=== PATIENT | male | born 1935 | race Caucasian/White ===

== ENCOUNTER 2016-09-15 09:27 | Emergency (ER) | payer MEDICARE, OTHER ==
[2016-09-15 10:01] LABS: BASOPHIL# 0.2 X 10^3uL (0.0-0.1); BASOPHILS 1.1 % (0.0-2.0); EOSINOPHILS 0.1 % (0.0-6.0); HEMATOCRIT 42.6 % (42.0-54.0); HEMOGLOBIN 14.7 g/dL (14.0-18.0); LYMPHOCYTES 8.7 % (20.0-40.0); LYMPHOCYTES# 1.2 X 10^3uL (0.8-3.8); MEAN CELL VOLUME 89.7 fL (80.0-100.0); MEAN CORPUS. HGB CONCENTRATION 34.6 g/dL (32.0-36.0); MEAN CORPUSCULAR HEMOGLOBIN 31.1 pg (29.0-35.0); MEAN PLATELET VOLUME 7.9 fL (7.4-10.4); MONOCYTES# 0.7 X 10^3uL (0.2-1.0); NEUTROPHILS 85.1 % (54.0-75.0); NEUTROPHILS# 11.9 X 10^3uL (2.6-6.7); PLATELET COUNT 228 X 10^3uL (130-440); RED BLOOD COUNT 4.75 X 10^6uL (4.20-6.10); RED CELL DISTRIBUTION WIDTH 12.6 % (11.5-14.5); WHITE BLOOD COUNT 14.1 X 10^3uL (3.9-10.7)
[2016-09-15 10:11] LABS: BLOOD UREA NITROGEN 24 mg/dL (9-20); CHLORIDE 107 mmol/L (98-107); EST GLOMERULAR FILTRATION RATE > 60 mL/min; GLUCOSE 94 mg/dL (70-100); MAGNESIUM 2.5 mg/dL (1.6-2.3); POTASSIUM 4.3 mmol/L (3.5-5.1); SODIUM 144 mmol/L (137-145)
--- NOTE | 2016-09-15 10:16 | CT REPORT ---
HISTORY: Syncope. Amnesia COMPARISON: None. TECHNIQUE: Unenhanced axial CT of the head. Dose reduction technique was utilized. FINDINGS: The ventricles, sulci, and cisterns are normal in size, shape, and position There is no evidence of intracranial hemorrhage, mass lesion, or acute infarct There is no midline shift The bony calvaria appears intact The orbits appear unremarkable. Evidence of prior cataract surgery. The visualized paranasal sinuses and mastoid air cells appear clear Atherosclerotic calcifications of the vertebral arteries and cavernous carotid arteries. IMPRESSION: No acute intracranial abnormality. Final Electronic Signature: This report was electronically signed by Gen Monica MD on 09/15/2016 10: 13 AM. brandy /
--- NOTE | 2016-09-15 10:17 | RADIOLOGY REPORT ---
History: Syncope Comparison: None. Technique: CXR 1V FINDING: Elevation of the right hemidiaphragm. No pneumothorax or effusion. Atherosclerotic calcifications of the aortic arch. Heart size is normal. Mild central vascular congestion without jennifer pulmonary edema . IMPRESSION: Elevation of the right hemidiaphragm. Mild central vascular congestion without jennifer pulmonary edema Final Electronic Signature: This report was electronically signed by Gen Monica MD on 09/15/2016 10: 15 AM. brandy /
[2016-09-15 10:24] LABS: TROPONIN I < 0.012 ng/mL (0.00-0.034)
--- NOTE | 2016-09-15 12:04 | ER NURSING DOCUMENTATION ---
Nurse's Notes [facility] Name:Alfredo Elias Age:81 yrs Sex:Male :1935 Arrival Date:09/15/2016 Time:09:27 Bed4 Private MD:Rajeev Su Diagnosis:Syncope;Dehydration Presentation: 09/15 09:30 Presenting complaint: Patient states: pt states he got out of bed this AM and was a st little nauseated and had some back with he contributed to work hard yesterday. pt was going about his day then he woke up an hour latter on the bedroom floor pt has no idea how he got there and he is feeling fine now except for the back pain. Transition of care: Home. Care prior to arrival: Medication(s) given: Tylenol. 09:30 Method Of Arrival: Private Vehicle st 09:42 Notified ED Physician of Dr. Kilpatrick notified. st 09:42 Acuity: DEVIN 2 st Triage Assessment: 09:30 General: Appears in no apparent distress, Behavior is cooperative. Pain: Complains of st pain in left low back and right low back Pain currently is 6 out of 10 on a pain scale. Aggravated by worst with movment. Neuro: Level of Consciousness is awake, alert, Oriented to person, place, time, Risk Professional are equal bilaterally Moves all extremities. Reports loosing an hour of his day and waking up on the floor.. Cardiovascular:. Cardiovascular: Capillary refill < 3 seconds Heart tones present Pulses are palpable in right radial artery and left radial artery Rhythm is sinus bradycardia. Respiratory: No deficits noted. GI: Abdomen is flat, non- distended Abd is soft and non tender X 4 quads. Reports nausea, that has resolved. Historical: - Allergies: wallnuts; - Home Meds: 1. None - PMHx: global amnisa episode; - PSHx: cateracts; - Tetanus: < 10 years. - Ebola Screening: : Patient denies exposure to infectious person. Patient denies travel to an Ebola-affected area in the 21 days before illness onset. . - Social history: Smoking status: Patient states was never smoker of tobacco. Patient uses alcohol occasionally. Patient/guardian denies using marijuana. Screenin:58 Infectious Disease Risk None. Abuse screen: Denies threats or abuse. Denies injuries st from another. pt feels safe at home. Nutritional screening: No deficits noted. Assessment: 10:54 General: pt continues to feel fine.. st Vital Signs: 09:30 BP 162 / 68; Pulse 58; Resp 16; Pulse Ox 89% on R/A; Pain 6/10; st 09:58 Pulse Ox 93% on 2 lpm NC; st 10:11 BP 153 / 67 (auto/); st 10:14 Pulse 56 MON; Resp 23; Pulse Ox 95% ; st 10:26 BP 148 / 66 (auto/); st 10:29 Pulse 58 MON; Resp 11; Pulse Ox 95% ; st 10:30 BP 145 / 67 (auto/); st 10:39 Pulse 60 MON; Resp 20; Pulse Ox 95% ; st ED Course: 09:30 Patient arrived in ED. ama 09:31 Rajeev Su DO is Private Physician. ama 09:35 Inserted peripheral IV: 20 gauge in right antecubital area and blood collected. Oxygen st Oxygen administration via nasal cannula @ 2L/min. 09:39 EKG done per protocol. Performed by ED Staff. Shown to ED physician. st 09:42 Vonnie Almendarez, RN is Primary Nurse. st 09:[address] 09:50 Patient moved to [place]. pm1 09:59 Valuables Remains with patient Patient has correct armband on for positive st identification. Placed in gown. Bed in low position. 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 Pulse ox on. NIBP on. 10:01 Norberto Kilpatrick MD is Attending Physician. sc 10:11 Patient moved back from [place]. pm1 10:54 Urine collected. Clean catch specimen. st 11:18 Rajeev Su DO is Referral Physician. sc Administered Medications: 10:55 Drug: NS 0.9% 500 ml; Route: IV; Rate: bolus; Site: right antecubital; st 11:11 Follow up: IV Status: Completed infusion; IV Intake: 700ml st 11:11 Drug: NS 0.9% 500 ml; Route: IV; Rate: bolus; Site: right antecubital; st 11:22 Follow up: IV Status: Completed infusion; IV Intake: 300ml st 11:22 Drug: NS 0.9% 1000 ml; Route: IV; Rate: bolus; Site: right antecubital; st 11:57 Follow up: IV Status: Completed infusion; IV Intake: 1000ml st Point of Care Testing: Blood Glucose: 09:49 Blood Glucose: 92 mg/dL; st Urine Dip: 10:49 pH: 5.0; ; Specific [place]: 1.030; Ketones: Large; Glucose: Negative; Protein: st Positive (+); Leukocytes: Negative; Nitrite: Negative ; Blood: Hemolyzed Trace; Bilirubin: Small (+) ; Urobilinogen: Normal 11:56 pH: 5.0; ; Specific [place]: 1.020; Ketones: Moderate; Glucose: Negative; Protein: st Negative; Leukocytes: Negative; Nitrite: Negative ; Blood: Negative; Bilirubin: Negative ; Urobilinogen: Normal Ranges: Intake: 11:11 IV: 700ml; Total: 700ml. st 11:22 IV: 300ml; Total: 1000ml. st 11:57 IV: 1000ml; Total: 2000ml. Outcome: 11:19 Discharge ordered by . ks 12:03 Discharged to home ambulatory. 12:03 Condition: improved 12:03 Discharge instructions given to patient, Instructed on discharge instructions, follow up and referral plans. 12:04 Patient [address] the ED. st 09/16 09:05 Discharge F/U Call: Spoke with: patient. other: Name: pt states that he is still st stiff and sore but is otherwise doing well. Pt denies any dizzy spells and states he is trying to get more water in. Signatures: Vonnie Almendarez RN RN st Chew, Scott, MD MD sc McBride, Philisha pm1 Arsenio Gracia, Reg Reg ama
--- NOTE | 2016-09-15 12:04 | ER PHYSICIAN DOCUMENTATION ---
Physician Documentation [facility] Name:Alfredo Elias Age:81 yrs Sex:Male :1935 Arrival Date:09/15/2016 Time:09:27 Bed4 Private MD:Rajeev Su ED, Scott Disposition: 09/15/16 11:19 Discharged to Home/Self Care. Impression: Syncope, Dehydration. - Condition is Good. - Discharge Instructions: DEHYDRATION (8y-Adult), SYNCOPE, Unk Cause. - Medical Reconciliation form form. - Follow up: Rajeev Su DO; When: Tomorrow; Reason: Recheck today's complaints. - Problem is new. - Symptoms are resolved. HPI: 09/15 10:50 This 81 yrs old Male presents to ER via Private Vehicle with complaints of sc Passed Out Prior To Arrival, Flank Pain. 10:50 The patient has experienced syncope, collapsed. Onset: The symptom(s)/episode sc began/occurred at 05:30. Duration: This was a single episode, that lasted 1 hour(s). Context: the episode(s) was witnessed, by no one, occurred at home, occurred while the patient was standing. Associated injury: The patient did not suffer any apparent associated injury. Associated signs and symptoms: Pertinent positives: nausea, flank discomfort. Current symptoms: Currently, the patient is not experiencing any symptoms. The patient has not experienced similar symptoms in the past. Historical: - Allergies: wallnuts; - Home Meds: 1. None - PMHx: global amnisa episode; - PSHx: cateracts; - Tetanus: < 10 years. - Ebola Screening: : Patient denies exposure to infectious person. Patient denies travel to an Ebola-affected area in the 21 days before illness onset. . - Social history: Smoking status: Patient states was never smoker of tobacco. Patient uses alcohol occasionally. Patient/guardian denies using marijuana. ROS: 11:15 Constitutional: Negative for fever, chills, and weight loss. sc Eyes: Negative for injury, pain, redness, and discharge. ENT: Negative for injury, pain, and discharge. Neck: Negative for injury, pain, and swelling. Cardiovascular: Negative for chest pain, palpitations, and edema. Respiratory: Negative for shortness of breath, cough, wheezing, and pleuritic chest pain. Back: Negative for injury and pain. MS/Extremity: Negative for injury and deformity. 11:15 Skin: Negative for injury, rash, and discoloration. sc 11:15 Cardiovascular: Negative for chest pain, edema, orthopnea, palpitations. 11:15 Abdomen/GI: Positive for nausea. 11:15 : Positive for flank pain. 11:15 Neuro: Positive for syncope. Exam: Constitutional: This is a well developed, well nourished patient who is awake, alert, and in no acute distress. Head/Face: Normocephalic, atraumatic. Eyes: Pupils equal round and reactive to light, extra-ocular motions intact. Lids and lashes normal. Conjunctiva and sclera are non-icteric and not injected. Cornea within normal limits. Periorbital areas with no swelling, redness, or edema. ENT: Nares patent. No nasal discharge, no septal abnormalities noted. Tympanic membranes are normal and external auditory canals are clear. Oropharynx with no redness, swelling, or masses, exudates, or evidence of obstruction, uvula midline. Mucous membranes moist. Neck: Trachea midline, no thyromegaly or masses palpated, and no cervical lymphadenopathy. Supple, full range of motion without nuchal rigidity, or vertebral point tenderness. No meningismus. Chest/axilla: Normal chest wall appearance and motion. Nontender with no deformity. No lesions are appreciated. Respiratory: Lungs have equal breath sounds bilaterally, clear to auscultation and percussion. No rales, rhonchi or wheezes noted. No increased work of breathing, no retractions or nasal flaring. Abdomen/GI: Soft, non-tender, with normal bowel sounds. No distension or tympany. No guarding or rebound. No evidence of tenderness throughout. Back: No spinal tenderness. No costovertebral tenderness. Full range of motion. Male : Normal genitalia with no discharge or lesions. Skin: Warm, dry with normal turgor. Normal color with no rashes, no lesions, and no evidence of cellulitis. MS/ Extremity: Pulses equal, no cyanosis. Neurovascular intact. Full, normal range of motion, negative Homans's, calves equal bilaterally. 11:16 Neuro: Awake and alert, GCS 15, oriented to person, place, time, and situation. sc Cranial nerves II-XII grossly intact. Motor strength 5/5 in all extremities. Sensory grossly intact. Cerebellar exam normal. Normal gait. 11:16 Cardiovascular: Rate: bradycardic, Rhythm: regular. Vital Signs: 09:30 BP 162 / 68; Pulse 58; Resp 16; Pulse Ox 89% on R/A; Pain 6/10; st 09:58 Pulse Ox 93% on 2 lpm NC; st 10:11 BP 153 / 67 (auto/); st 10:14 Pulse 56 MON; Resp 23; Pulse Ox 95% ; st 10:26 BP 148 / 66 (auto/); st 10:29 Pulse 58 MON; Resp 11; Pulse Ox 95% ; st 10:30 BP 145 / 67 (auto/); st 10:39 Pulse 60 MON; Resp 20; Pulse Ox 95% ; st MDM: 10:01 Patient medically screened. co 11:16 Differential Diagnosis: cardiac arrhythmia, cerebrovascular accident, idiopathic sc syncope, vasovagal episode. Neurological re-evaluation: normal neurological exam including cranial nerves, orientation, mentation, motor and sensory exam, cerebellar testing, GCS normal, and normal gait. Data reviewed: vital signs, nurses notes, old medical records, lab test result(s), EKG, radiologic studies, CT scan, and as a result, I will continue to observe the patient, administer IV fluids. ECG:. Medication response: The patient's symptoms have improved. Response to treatment: the patient's symptoms have resolved after treatment, the patient is now symptom free, flank discomfort and nausea resolved with rehydration. Patient refused admission for observation/repeat enzymes, further eval for syncope.. 09/15 10:18 Order name: CBC AUTO DIF, MDIF/RMOR IF IND; Complete Time: 10:30 EDMS 09/15 10:30 Interpretation: Abnormal: WHITE BLOOD COUNT 14.1; NEUTROPHILS 85.1. co 09/15 10:25 Order name: BASIC METABOLIC PANEL; Complete Time: 10:30 EDMS 09/15 10:30 Interpretation: Normal. co 09/15 10:25 Order name: MAGNESIUM; Complete Time: 10:30 EDMS 09/15 10:30 Interpretation: Normal Except: MAGNESIUM 2.5. co 09/15 10:25 Order name: TROPONIN I; Complete Time: 10:30 EDMS 09/15 10:30 Interpretation: Normal. co 09/15 10:16 Order name: CAT SCAN; HEAD W/O CON [id number]; Complete Time: 10:30 EDMS 09/15 10:29 Interpretation: Normal. co 09/15 10:18 Order name: CHEST; SINGLE VIEW [id number]; Complete Time: 10:30 EDMS 09/15 10:30 Interpretation: Normal Except. co 09/15 09:47 Order name: 12-lead EKG; Complete Time: 09:47 st 09/15 09:47 Order name: Iv Saline Lock; Complete Time: :47 09/15 09:47 Order name: Place Patient On Monitor; Complete Time: :47 09/15 09:47 Order name: Pulse Ox Continuous; Complete Time: :47 st 09/15 10:33 Order name: Urine Dip; Complete Time: 10:55 co EC:16 Rate is 53 beats/min. Rhythm is regular. QRS [place] is Normal. NM interval is normal. QRS sc interval is normal. QT interval is normal. Q waves are Old. T waves are Normal. No ST changes noted. Clinical impression: Normal ECG. Interpreted by me. Reviewed by me. Dispensed Medications: 10:55 Drug: NS 0.9% 500 ml; Route: IV; Rate: bolus; Site: right antecubital; st 11:11 Follow up: IV Status: Completed infusion; IV Intake: 700ml st 11:11 Drug: NS 0.9% 500 ml; Route: IV; Rate: bolus; Site: right antecubital; st 11:22 Follow up: IV Status: Completed infusion; IV Intake: 300ml st 11:22 Drug: NS 0.9% 1000 ml; Route: IV; Rate: bolus; Site: right antecubital; st 11:57 Follow up: IV Status: Completed infusion; IV Intake: 1000ml Point of Care Testing: Blood Glucose: 09:49 Blood Glucose: 92 mg/dL; st Urine Dip: 10:49 pH: 5.0; ; Specific [place]: 1.030; Ketones: Large; Glucose: Negative; Protein: st Positive (+); Leukocytes: Negative; Nitrite: Negative ; Blood: Hemolyzed Trace; Bilirubin: Small (+) ; Urobilinogen: Normal 11:56 pH: 5.0; ; Specific [place]: 1.020; Ketones: Moderate; Glucose: Negative; Protein: st Negative; Leukocytes: Negative; Nitrite: Negative ; Blood: Negative; Bilirubin: Negative ; Urobilinogen: Normal Ranges: Critical Glucose Levels:Adult <50 mg/dl or >400 mg/dl <40 mg/dl or >180 mg/dl Signatures: Vonnie Almendarez RN Norberto Lema MD MD sc
== END 2016-09-15 12:04 | disposition home or self-care (01) ==
LOC: ER 09:27
DX: R55 Syncope and collapse (principal); E86.0 Dehydration; R11.0 Nausea; R10.9 Unspecified abdominal pain; R00.1 Bradycardia, unspecified
CPT/HCPCS: 70450; 71010; 80048; 83735; 84484; 85025; 93005; 93010; 96360; 99285

== ENCOUNTER 2016-09-22 14:18 | Emergency (ER) | payer MEDICARE, OTHER ==
[2016-09-22 14:55] LABS: BASOPHILS 0.3 % (0.0-2.0); EOSINOPHILS 1.6 % (0.0-6.0); EOSINOPHILS# 0.2 X 10^3uL (0.0-0.4); HEMATOCRIT 42.3 % (42.0-54.0); HEMOGLOBIN 14.5 g/dL (14.0-18.0); LYMPHOCYTES 20.2 % (20.0-40.0); LYMPHOCYTES# 1.9 X 10^3uL (0.8-3.8); MEAN CORPUS. HGB CONCENTRATION 34.4 g/dL (32.0-36.0); MEAN CORPUSCULAR HEMOGLOBIN 31.3 pg (29.0-35.0); MEAN PLATELET VOLUME 8.4 fL (7.4-10.4); MONOCYTES 8.4 % (2.0-10.0); MONOCYTES# 0.8 X 10^3uL (0.2-1.0); NEUTROPHILS 69.5 % (54.0-75.0); NEUTROPHILS# 6.6 X 10^3uL (2.6-6.7); PLATELET COUNT 230 X 10^3uL (130-440); RED BLOOD COUNT 4.65 X 10^6uL (4.20-6.10); RED CELL DISTRIBUTION WIDTH 12.7 % (11.5-14.5); WHITE BLOOD COUNT 9.5 X 10^3uL (3.9-10.7)
[2016-09-22 15:03] LABS: CKMB QUALITATIVE NEGATIVE; MYOGLOBIN QUALITATIVE NEGATIVE; TROPONIN QUALITATIVE NEGATIVE
[2016-09-22 15:14] LABS: BLOOD UREA NITROGEN 24 mg/dL (9-20); CALCIUM 9.3 mg/dL (8.4-10.2); CHLORIDE 107 mmol/L (98-107); EST GLOMERULAR FILTRATION RATE 57 mL/min; GLUCOSE 107 mg/dL (70-100); POTASSIUM 4.1 mmol/L (3.5-5.1); SODIUM 144 mmol/L (137-145)
--- NOTE | 2016-09-22 15:24 | CT REPORT ---
History: Syncope 09/15/2016. Comparison: 09/15/2016 Technique: Axial CT from the skull base through the vertex without contrast. This examination was performed usin g automated exposure control, adjustment of mA or kV according to patient size, and/or use of iterati ve reconstruction technique. Findings: There are a few scattered ill-defined foci of decreased attenuation in the supratentorial white matte r of both cerebral hemispheres. There is no evidence of acute large vascular territory infarct, intra or extra-axial mass or hemorrhage, nor hydrocephalus. There is mild generalized prominence of the ve ntricles and sulci. The soft tissues, orbits, and globes are unremarkable. There is no acute osseous finding and the paranasal sinuses are clear. Impression: 1. 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 2. Mild supratentorial chronic microvascular ischemic disease. Final Electronic Signature: This report was electronically signed by Ed Bowman MD on 09/22/2016 3:21 PM. [email or web address] /
[2016-09-22 15:26] LABS: TROPONIN I < 0.012 ng/mL (0.00-0.034)
--- NOTE | 2016-09-22 15:27 | RADIOLOGY REPORT ---
HISTORY: Recent history of syncope, wellness check. COMPARISON: 09/15/2016 FINDINGS: 1 view of the chest obtained. There has been no significant interval change. There is persistent elev ation of the right hemidiaphragm. Lung volumes are slightly decreased. Minimal discoid as opacificati on or atelectasis is noted in the left lung base. Cardiac silhouette at upper limits of normal in siz e. No pneumothorax or displaced rib fracture. IMPRESSION: No evidence of active cardiopulmonary disease or other significant change. Final Electronic Signature: This report was electronically signed by Eder Barfield MD on 09/22/2016 3 :25 PM. [email or web address] /
--- NOTE | 2016-09-22 16:03 | CT REPORT ---
HISTORY: Fainting, elevated d-dimer COMPARISON: None. TECHNIQUE: This examination was performed using automated exposure control, adjustment of mA or kV according to patient size, and/or use of iterative reconstruction technique. Axial CT imaging from the thoracic i nlet through the upper abdomen following administration of IV contrast during peak opacification of t he pulmonary arteries, multiplanar reformatted and 3-D images are evaluated. 100cc Isovue 370 contrast. FINDINGS: There is normal enhancement within the pulmonary arteries. No evidence for pulmonary embolism. Pulmon keo arteries are upper limits of normal in size. The thoracic aorta appears normal except for mild at herosclerotic change. There is mild cardiomegaly. There is no pleural or pericardial effusion. There is no abnormal adenopa thy. There is mild elevation of the right hemidiaphragm, associated with mild atelectasis. There is n o consolidation or evidence for pneumonia. There is normal alignment to the thoracic spine. The upper abdominal structures appear normal. IMPRESSION: No evidence for pulmonary embolism. Mild atelectasis at the bases particularly on the right, in part due to elevation of the right hemidi aphragm. Mild cardiomegaly. Final Electronic Signature: This report was electronically signed by Lino Vivar MD on 09/22/2016 4 :01 PM. [email or web address] /
--- NOTE | 2016-09-22 17:56 | ER PHYSICIAN DOCUMENTATION ---
Physician Documentation [facility] Name:Alfredo Elias Age:81 yrs Sex:Male :1935 Arrival Date:09/22/2016 Time:14:18 Bed4 Private MD: Bert Granados Disposition: 09/22/16 16:26 Discharged to Home/Self Care. Impression: Near Syncope: Postural, Dehydration. - Condition is Good. - Discharge Instructions: DEHYDRATION (8y-Adult), SYNCOPE, Unk Cause. - Medical Reconciliation form form. - Follow up: Rajeev Su DO; When: 4- 6 days; Reason: Recheck today's complaints, Continuance of care. - Problem is an ongoing problem. - Symptoms are resolved. - Notes: Drink 1 - 2 quarts of water or Gatorade every day. Eat three meals per day. Rest.... Follow up with Dr. Rajeev Su in 4 - 6 days for recheck. HPI: 09/22 14:47 This 81 yrs old Male presents to ER via EMS with complaints of Fainting, cd recurrent. 14:47 The patient has experienced syncope, became unresponsive, collapsed. Onset: The cd symptom(s)/episode began/occurred acutely, 7 day(s) ago, and a second time 2 days ago. He reports his is out of town and he eats maybe two meals a day, since he has to prepare the meals himself. He was initially seen in the ED by Dr. Norberto Kilpatrick 7 days ago on September 15 for a syncopal episode. He was given IV fluids and discharged home. He had a second syncopal episode 2 days ago, fell and stuck his right lateral eyebrow and sustained a small laceration. He did not come to the ED or go to the Clinic. Today a friend was concerned and called for a welfare check. He was brought to the ED for evaluation. He is not on anticoagulants or Plavix. Context: the episode(s) was witnessed, by no one, occurred at home, occurred while the patient was standing, Just prior to the episode the patient experienced lightheadedness. Associated signs and symptoms: Pertinent negatives: abdominal pain, ataxia, blurred vision, chest pain, confusion, diaphoresis, diarrhea, dizziness, headache, lightheadedness, nausea, palpitations, seizure, shortness of breath, vomiting, weakness. Current symptoms: Currently, the patient is not experiencing any symptoms. The patient has experienced a previous episode, last week, approximately 7 days ago. Historical: - Allergies: No known drug Allergies; - Home Meds: 1. None - PSHx: cataracts; - Tetanus: < 10 years. - Ebola Screening: : Patient negative for fever greater than or equal to 101.5 degrees Fahrenheit, and additional compatible Ebola Virus Disease symptoms. Patient denies exposure to infectious person. Patient denies travel to an Ebola-affected area in the 21 days before illness onset. No symptoms or risks identified at this time. . - Immunization history: Pneumococcal vaccine is up to date, Flu Vaccine < 1 year. - Social history: Smoking status: Patient states was never smoker of tobacco. Patient uses alcohol occasionally. Patient/guardian denies using marijuana. ROS: 14:54 Eyes: Negative for injury, pain, redness, discharge, blurry vision and loss of vision. cd ENT: Negative for injury, pain, epistaxis and discharge. Neck: Negative for injury, pain, stiffness and swelling. Back: Negative for injury, pain or muscle spasms. : Negative for injury, bleeding, discharge, swelling, dysuria, frequency or urgency. MS/Extremity: Negative for injury, deformity, edema, calf tenderness, pain or coldness. 14:54 Skin: Negative for injury, rash, itching and discoloration. cd 14:54 Constitutional: Positive for poor PO intake, Negative for chills, fever. 14:54 Cardiovascular: Negative for chest pain, edema, orthopnea, palpitations. 14:54 Respiratory: Negative for cough, dyspnea on exertion, hemoptysis, pleurisy, shortness of breath, wheezing. 14:54 Abdomen/GI: Negative for abdominal pain, nausea, vomiting, diarrhea, abdominal distension, anorexia, hematemesis, black/tarry stool, rectal bleeding. 14:54 Neuro: Positive for syncope, Negative for altered mental status, dizziness, gait disturbance, headache, loss of consciousness, numbness, seizure activity, speech changes, tingling, visual changes, weakness. 14:54 All other systems are negative. Exam: 14:56 Abdomen/GI: Inspection: abdomen appears normal, Bowel sounds: normal, Palpation: cd abdomen is soft and non-tender, Rectal exam: rectal tone normal, stool brown, stool guaiac negative, mass, is not appreciated. Head/Face: Normocephalic, atraumatic. ENT: Nares patent. No nasal discharge, no septal abnormalities noted. Tympanic membranes are normal and external auditory canals are clear. Oropharynx with no redness, swelling, or masses, exudates, or evidence of obstruction, uvula midline. Mucous membranes moist. Neck: Trachea midline, no thyromegaly or masses palpated, and no cervical lymphadenopathy. Supple, full range of motion without nuchal rigidity, or vertebral point tenderness. No Meningismus. Chest/axilla: Normal chest wall appearance and motion. Nontender with no deformity. No lesions are appreciated. 14:56 Back: No spinal tenderness. No costovertebral tenderness. Full range of motion. 14:56 Constitutional: The patient appears alert, awake, non-diaphoretic, non-toxic, well developed, well nourished. 14:56 Eyes: Pupils: equal, round, and reactive to light and accomodation, Extraocular movements: intact throughout, Conjunctiva: normal. 14:56 Cardiovascular: Rate: normal, Rhythm: regular, Pulses: no pulse deficits are appreciated, Heart sounds: normal, Edema: is not appreciated. 14:56 Respiratory: the patient does not display signs of respiratory distress, Respirations: normal, no acute changes, Breath sounds: are normal, clear throughout. 14:56 Abdomen/GI: Inspection: abdomen appears normal, Bowel sounds: normal, active, Palpation: abdomen is soft and non-tender, Rectal exam: Stool: guaiac negative. 14:56 Musculoskeletal/extremity: Extremities: all appear grossly normal, with no appreciated pain with palpation, ROM: no acute changes, Circulation is intact in all extremities. Sensation intact. 14:56 Skin: injury, abrasion(s), very small abrasion noted, of the right hand and left hand. 14:56 Neuro: Orientation: is normal, to person, place & time. Mentation: is normal, Memory: is normal, Cranial nerves: CN II- XII are normal as tested, Cerebellar function: is grossly normal, Motor: is normal, Sensation: is normal, Deep tendon reflexes are normal. Vital Signs: 14:35 BP 141 / 59; Pulse 63; Resp 22; Temp 98.0(O); Pulse Ox 92% on 2 lpm NC; Weight 68.04 sj kg; Height 5 ft. 7 in. (170.18 cm); Pain 0/10; 14:53 BP 120 / 57; Pulse 60; Resp 21; Pulse Ox 94% on 2 lpm NC; Pain 0/10; sj 15:18 BP 130 / 58; Pulse 62; Resp 24; Pulse Ox 94% on 2 lpm NC; sj 16:02 BP 138 / 58; Pulse 64; Resp 26; Pulse Ox 94% on 2 lpm NC; sj 16:39 BP 137 / 64; Pulse 67; Resp 29; Pulse Ox 95% on 2 lpm NC; sj 17:25 BP 133 / 59; Pulse 58; Resp 23; Pulse Ox 95% on 2 lpm NC; Pain 0/10; sj 17:53 Pulse Ox 92% on R/A; sj 14:35 Body Mass Index 23.49 (68.04 kg, 170.18 cm) [place] Coma Score: 14:56 Eye Response: spontaneous(4). Verbal Response: oriented(5). Motor Response: obeys cd commands(6). Total: 15. MDM: 14:29 Patient medically screened. cd 14:55 Differential Diagnosis: cardiac arrhythmia, cerebrovascular accident, GI bleed, cd idiopathic syncope, sepsis, transient ischemic attack, vasovagal episode, Dehydration. Data reviewed: vital signs, nurses notes, EMS record, old medical records, EKG, and as a result, I will continue to observe the patient, administer IV fluids, NS bolus, NS maintenence. ECG:. 15:00 EKG attached sc1 16:57 Neurological re-evaluation: normal neurological exam including cranial nerves, cd orientation, mentation, motor and sensory exam, cerebellar testing, GCS normal, and normal gait. Data interpreted: electronic device monitor: rate is 67 beats/min, rhythm is normal sinus rhythm, regular, with no ectopy, Interpretation: normal rate, normal rhythm, throughout his ED stay, Pulse oximetry: on 2L(s) per nasal cannula, is 95 %. Interpretation: normal. 16:58 Counseling: I had a detailed discussion with the patient and/or guardian regarding: the cd historical points, exam findings, and any diagnostic results supporting the discharge/admit diagnosis, lab results, radiology results, the need for outpatient follow up, for a recheck, with the patient's primary care provider, to return to the emergency department if symptoms worsen or persist or if there are any questions or concerns that arise at home. Response to treatment: the patient's symptoms have markedly improved after treatment, the patient's condition has returned to base line, the patient is now symptom free, and as a result, I will discharge patient. 09/22 15:03 Order name: CBC AUTO DIF, MDIF/RMOR IF IND; Complete Time: 15:29 EDMS 09/22 15:20 Interpretation: Normal. 09/22 15:04 Order name: CKMB QUALITATIVE; Complete Time: 15:21 EDMS 09/22 15:21 Interpretation: Normal. 09/22 15:04 Order name: TROPONIN QUALITATIVE; Complete Time: 15:21 EDIL 09/22 15:21 Interpretation: Normal. 09/22 15:04 Order name: MYOGLOBIN QUALITATIVE; Complete Time: 15:21 EDMS 09/22 15:21 Interpretation: Normal. 09/22 15:20 Order name: DDIMER; Complete Time: 15:29 EDIL 09/22 15:21 Interpretation: Abnormal: DDIMER 495; Elevated, but less than 10x the patient's age. 09/22 15:27 Order name: BASIC METABOLIC PANEL; Complete Time: 15:29 EDMS 09/22 15:29 Interpretation: Normal. 09/22 15:27 Order name: TROPONIN I; Complete Time: 15:29 EDMS 09/22 15:29 Interpretation: Normal. 09/22 15:26 Order name: CAT SCAN; HEAD W/O CON [id number]; Complete Time: 15:29 EDIL 09/22 15:29 Interpretation: Normal Except: Reviewed Radiologist Report. 09/22 15:27 Order name: CHEST; SINGLE VIEW [id number]; Complete Time: 15:29 EDIL 09/22 15:29 Interpretation: Normal. 09/22 16:05 Order name: CAT SCAN; CHEST ANGIO [id number]; Complete Time: 16:30 EDIL 09/22 16:30 Interpretation: Normal Except: Radiologist Reading reviewed. No PE's. Positive cd Atalectasis. 09/22 14:37 Order name: EKG - 12 Lead; Complete Time: 14:37 sj 09/22 14:46 Order name: Continuous Cardiac Monitoring; Complete Time: 14:50 cd 09/22 14:46 Order name: I & O; Complete Time: 14:50 cd 09/22 14:46 Order name: NPO; Complete Time: 14:50 cd 09/22 14:46 Order name: Oxygen; Complete Time: 14:50 cd 09/22 14:46 Order name: Pulse Ox Continuous; Complete Time: 14:50 cd EC:19 Rate is 62 beats/min. Rhythm is regular. SC interval is normal. QRS interval is normal. cd QT interval is normal. No Q waves. T waves are Normal. No ST changes noted. Clinical impression: Anterior [place] - age indeterminate, Inferior [place] - age indeterminate, and No evidence of ischemia. Interpreted by me. Dispensed Medications: 14:50 Drug: NS 0.9% 500 ml; Route: IV; Rate: bolus; Site: right antecubital; 15:17 Follow up: Rate change 150 ml/hr; IV Intake: 500ml sj 17:54 Follow up: IV Status: Infusion continued sj 15:18 Drug: NS 0.9% 1000 ml; Route: IV; Rate: 150 ml/hr; Site: right antecubital; 16:41 Follow up: IV Status: Completed infusion; IV Intake: 500ml 16:39 Drug: NS 0.9% 1000 ml; Route: IV; Rate: bolus; Site: right antecubital; 17:45 Follow up: IV Status: Completed infusion; IV Intake: 1000ml Point of Care Testing: Urine Dip: 16:02 pH: 5.0; ; Specific [place]: 1.025; Ketones: Small; Glucose: Negative; Protein: Trace; sj Leukocytes: Negative; Nitrite: Negative ; Blood: Negative; Bilirubin: Small (+) ; Urobilinogen: Normal Signatures: Naida Pedro, RN RN sc1 Bert Penn MD MD cd Janzen, Sarah sj
--- NOTE | 2016-09-22 17:56 | ER NURSING DOCUMENTATION ---
Nurse's Notes [facility] Name:Alfredo Elias Age:81 yrs Sex:Male :1935 Arrival Date:09/22/2016 Time:14:18 Bed4 Private MD: Diagnosis:Near Syncope: Postural;Dehydration Presentation: 09/22 14:27 Presenting complaint: EMS states: concerned neighbors stated that Alfredo "wasn't quite sj right." No further detail. Patient denies complaints. RA sat 87%, currently on oxygen 2L/nc. Seen here previously last week for syncopal episode and dehydration. Has a 2 cm sutured lac to right eyebrow/mosque area. Transition of care: Home. 14:27 Acuity: DEVIN 4 sj 14:27 Method Of Arrival: EMS: 410 sj 14:51 Acuity: DEVIN 2 lpr Triage Assessment: 14:31 General: Appears in no apparent distress, well developed, well nourished, well groomed, sj Behavior is cooperative, pleasant. Pain: Denies pain. Neuro: Level of Consciousness is awake, alert, Oriented to person, place, time, event, Chemical Engineering Technician are equal bilaterally Moves all extremities. Gait is steady, Speech is normal, Facial symmetry appears normal, Reports Denies weakness paresthesias. Cardiovascular: Capillary refill < 3 seconds Pulses are all present. are 2+ in right radial artery, right dorsalis pedis artery, left radial artery and left dorsalis pedis artery. Cardiovascular: Heart tones S1 S2 Denies lightheadedness, palpitations, syncope, Rhythm is sinus rhythm. Respiratory: Airway is patent Trachea midline Respiratory effort is even, unlabored, Respiratory pattern is regular, symmetrical. Respiratory: Breath sounds are clear bilaterally. Denies shortness of breath at rest, on exertion. GI: Bowel sounds present X 4 quads. Historical: - Allergies: No known drug Allergies; - Home Meds: 1. None - PSHx: cataracts; - Tetanus: < 10 years. - Ebola Screening: : Patient negative for fever greater than or equal to 101.5 degrees Fahrenheit, and additional compatible Ebola Virus Disease symptoms. Patient denies exposure to infectious person. Patient denies travel to an Ebola-affected area in the 21 days before illness onset. No symptoms or risks identified at this time. . - Immunization history: Pneumococcal vaccine is up to date, Flu Vaccine < 1 year. - Social history: Smoking status: Patient states was never smoker of tobacco. Patient uses alcohol occasionally. Patient/guardian denies using marijuana. Screenin:36 Infectious Disease Risk None. Abuse screen: Denies threats or abuse. Denies injuries sj from another. Nutritional screening: No deficits noted. Assessment: 14:35 See Triage Assessment done by same RN. sj Vital Signs: 14:35 BP 141 / 59; Pulse 63; Resp 22; Temp 98.0(O); Pulse Ox 92% on 2 lpm NC; Weight 68.04 sj kg; Height 5 ft. 7 in. (170.18 cm); Pain 0/10; 14:53 BP 120 / 57; Pulse 60; Resp 21; Pulse Ox 94% on 2 lpm NC; Pain 0/10; sj 15:18 BP 130 / 58; Pulse 62; Resp 24; Pulse Ox 94% on 2 lpm NC; sj 16:02 BP 138 / 58; Pulse 64; Resp 26; Pulse Ox 94% on 2 lpm NC; sj 16:39 BP 137 / 64; Pulse 67; Resp 29; Pulse Ox 95% on 2 lpm NC; sj 17:25 BP 133 / 59; Pulse 58; Resp 23; Pulse Ox 95% on 2 lpm NC; Pain 0/10; sj 17:53 Pulse Ox 92% on R/A; sj 14:35 Body Mass Index 23.49 (68.04 kg, 170.18 cm) sj [place] Coma Score: 14:56 Eye Response: spontaneous(4). Verbal Response: oriented(5). Motor Response: obeys cd commands(6). Total: 15. ED Course: 14:20 Patient arrived in ED. cj 14:27 Tiffani Davis is Primary Nurse. sj 14:28 Bert Penn MD is Attending Physician. cd 14:29 Triage completed. sj 14:35 Notified ED Physician of patient's arrival and chief complaint. Dr. Penn notified. sj 14:36 Valuables Remains with patient Patient has correct armband on for positive sj identification. Bed in low position. Call light in reach. Side rails up X2. Warm blanket given. 14:36 Maintain field IV. Dressing intact. Site clean & dry. Gauge & site: 20g, right sj antecubital. 14:51 EKG done per protocol. Performed by ED Staff. Shown to ED physician. sj 14:51 case monitor on. Pulse ox on. NIBP on. Diet: Patient is NPO. sj 14:52 Labs drawn. By EMS Sent per order to lab. Oxygen Oxygen administration via nasal sj cannula @ 2L/min. 15:00 EKG attached sc1 15:20 Port Xray Completed. temitope 15:[address] Patient moved back from [address]. temitope 15:[address] hz 15:47 Patient moved back from CT. hz 16:25 Rajeev Su DO is Referral Physician. cd Administered Medications: 14:50 Drug: NS 0.9% 500 ml; Route: IV; Rate: bolus; Site: right antecubital; sj 15:17 Follow up: Rate change 150 ml/hr; IV Intake: 500ml sj 17:54 Follow up: IV Status: Infusion continued sj 15:18 Drug: NS 0.9% 1000 ml; Route: IV; Rate: 150 ml/hr; Site: right antecubital; sj 16:41 Follow up: IV Status: Completed infusion; IV Intake: 500ml sj 16:39 Drug: NS 0.9% 1000 ml; Route: IV; Rate: bolus; Site: right antecubital; sj 17:45 Follow up: IV Status: Completed infusion; IV Intake: 1000ml Point of Care Testing: Urine Dip: 16:02 pH: 5.0; ; Specific [place]: 1.025; Ketones: Small; Glucose: Negative; Protein: Trace; sj Leukocytes: Negative; Nitrite: Negative ; Blood: Negative; Bilirubin: Small (+) ; Urobilinogen: Normal Intake: 15:17 IV: 500ml; Total: 500ml. sj 16:41 IV: 500ml; Total: 1000ml. sj 17:45 IV: 1000ml; Total: 2000ml. sj Output: 16:02 Urine: 100ml (Voided); Total: 100ml. sj Outcome: 16:26 Discharge ordered by . cd 17:54 Discharged to home ambulatory, with friend. sj 17:54 Condition: good 17:54 Instructed on discharge instructions, follow up and referral plans. Demonstrated understanding of instructions. 17:54 IV D/Aureliano 17:55 Patient left the ED. Signatures: Naida Pedro RN RN [facility] Bert Penn MD MD cd Roberts, Leslie, RN RN [facility] Katelyn Livingstona Stephens, aRch Davis, Tiffani Lindsay, Zenia
== END 2016-09-22 17:56 | disposition home or self-care (01) ==
LOC: ER 14:18
DX: R55 Syncope and collapse (principal); E86.0 Dehydration; S60.511A Abrasion of right hand, initial encounter; S60.512A Abrasion of left hand, initial encounter; W18.39XA Other fall on same level, initial encounter; Y92.019 Unspecified place in single-family (private) house as the place of occurrence of the external cause; Y93.01 Activity, walking, marching and hiking
CPT/HCPCS: 70450; 71010; 71275; 80048; 82553; 83874; 84484; 84512; 85025; 85379; 93005; 93010; 96360; 96361; 99284; 99285; A0425; A0427